=== PATIENT | female | born 1945 | race Two or more races ===

== ENCOUNTER 2020-03-04 23:11 | Emergency (ER) | payer OTHER ==
[~2020-03-04] VITALS: Ht 152.4 cm; Wt 65.8 kg
[2020-03-04] MEDS ORDERED: TUSNEL LIQUID178 ML (23:54)
[2020-03-04] MEDS ORDERED: LOSARTAN POTASS25 MG (23:54)
[2020-03-04] MEDS ORDERED: PROAIR HFA8.5 GM (23:54)
[2020-03-04] MEDS ORDERED: SYNTHROID75 MCG (23:54)
[2020-03-04] MEDS ORDERED: HYDROCHLOROTHIA25 MG (23:54)
[2020-03-04] MEDS ORDERED: CROMOLYN SODIUM10 ML (23:55)
== END 2020-03-05 01:24 | disposition home or self-care (01) ==
LOC: ER 23:11
DX: J45.998 Other asthma (principal)

== ENCOUNTER 2022-11-03 02:04 | Emergency (ER) | payer OTHER ==
[~2022-11-03] VITALS: Ht 152.4 cm; Wt 49.9 kg
[~2022-11-03 02:04] MED LIST: CROMOLYN SODIUM10 ML; HYDROCHLOROTHIA25 MG; LOSARTAN POTASS25 MG; PROAIR HFA8.5 GM; SYNTHROID75 MCG; TUSNEL LIQUID178 ML
[2022-11-03] MEDS ORDERED: PAXLOVID 150-11 EACH PO (05:22)
== END 2022-11-03 05:34 ==
LOC: ER 02:04
DX: U07.1 COVID-19 (principal); Z88.1 Allergy status to other antibiotic agents; Z88.8 Allergy status to other drugs, medicaments and biological substances

== ENCOUNTER 2023-06-05 12:38 | Emergency (ER) | payer OTHER ==
[~2023-06-05] VITALS: Ht 152.4 cm; Wt 63.5 kg
[~2023-06-05 12:38] MED LIST changes: +PAXLOVID 150-11 EACH PO
== END 2023-06-05 16:50 | disposition home or self-care (01) ==
LOC: ER 12:38
DX: K29.70 Gastritis, unspecified, without bleeding (principal); Z88.2 Allergy status to sulfonamides; Z88.8 Allergy status to other drugs, medicaments and biological substances